=== PATIENT | male | born 1980 ===

== ENCOUNTER 2018-10-10 14:52 | Inpatient (IN) ==
[2018-10-10] MEDS ORDERED: cefOXitin 2,000 MG in SYRINGE 1 EACH IV ONE (15:38)
[2018-10-10] MEDS ORDERED: PIPERACILLIN/TAZOBACTAM 3,375 MG in SODIUM CHLORIDE 0.9% 100 ML IV SCH (16:00)
[2018-10-10] MEDS ORDERED: BUPIVACAINE 0.5% 50 ML VIAL ONE (16:01)
[2018-10-10] MEDS ORDERED: ACETAMINOPHEN 325 MG TABLET PO PRN (16:01)
[2018-10-10] MEDS ORDERED: ONDANSETRON 4 MG/2 ML VIAL IV PRN (16:01)
[2018-10-10] MEDS ORDERED: MORPHINE 4 MG/1 ML VIAL IV PRN (16:01)
[2018-10-10] MEDS ORDERED: TISSUE ADHESIVE 1 EACH APPLICATOR TOP ONE (16:01)
[2018-10-10] MEDS ORDERED: LIDOCAINE 1%/EPI INJ 20 ML VIAL ONE (16:01)
[2018-10-10] MEDS ORDERED: PROPOFOL 200 MG/20 ML VIAL IV ONE (20:06)
[2018-10-10] MEDS ORDERED: SEVOFLURANE 1 UNIT/15 MINUTE INH ONE (20:06)
[2018-10-10] MEDS ORDERED: MIDAZOLAM 2 MG/2 ML VIAL ONE (20:06)
[2018-10-10] MEDS ORDERED: fentaNYL 100 MCG/2 ML VIAL ONE (20:06)
[2018-10-10] MEDS ORDERED: DEXAMETHASONE 10 MG/1 ML VIAL ONE (20:07)
[2018-10-10] MEDS ORDERED: SUCCINYLCHOLINE 200 MG/10 ML VIAL ONE (20:07)
[2018-10-10] MEDS ORDERED: ROCURONIUM 100 MG/10 ML VIAL IV ONE (20:07)
[2018-10-10] MEDS ORDERED: NEOSTIGMINE 10 MG/10 ML VIAL ONE (20:07)
[2018-10-10] MEDS ORDERED: ONDANSETRON 4 MG/2 ML VIAL ONE (20:07)
[2018-10-10] MEDS ORDERED: GLYCOPYRROLATE 0.4 MG/2 ML VIAL ONE (20:07)
[2018-10-10] MEDS ORDERED: ESMOLOL 100 MG/10 ML VIAL IV ONE (20:07)
[2018-10-10] MEDS: cefOXitin 2,000 MG in SYRINGE 1 EACH IV SCH (21:09)
[2018-10-10] MEDS: LACTATED RINGERS 1,000 ML IV SCH (22:00)
[2018-10-11] MEDS: LACTATED RINGERS 1,000 ML IV SCH ×4 (01:46→20:46)
[2018-10-11] MEDS: cefOXitin 2,000 MG in SYRINGE 1 EACH IV SCH ×4 (02:50→20:42)
[2018-10-11 05:37] LABS: Basophils % 0.2 % (0.0-0.8); Hematocrit 44.1 VOL% (42.0-52.0); Hemoglobin 14.8 GM/DL (14.0-18.0); Immature Granulocytes Absolute 0.26 #; Lymphocytes # 2.2 10*3/uL (1.4-4.0); Lymphocytes % 8.7 % (21.2-54.2); Mean Corpuscular HGB Conc 33.6 GM/DL (32-36); Mean Corpuscular Hemoglobin 30 PG (27-34); Mean Platelet Volume 11.2 FL (9.6-12.0); Monocytes % 7.7 % (1.7-12.7); Neutrophils # 20.9 10*3/uL (1.4-7.4); Neutrophils % 82.4 % (38.7-73.9); Platelet Count 178 T/CUMM (130-400); Red Blood Count 5.01 MC/CUMM (3.8-5.5); Red Cell Distribution Width 13.7 % (9.3-17.3); White Blood Count 25.4 T/CUMM (4-12)
[2018-10-11 06:06] LABS: Albumin 2.9 G/DL (3.4-5.0); Bilirubin,Total 1.1 MG/DL (0.2-1.0); Calcium 8.5 MG/DL (8.5-10.1); Osmolality,Calculated 272.1 MOS/KG (273-304); Potassium 3.7 MMOL/L (3.5-5.1); Total Protein 8.3 G/DL (6.4-8.3)
[2018-10-11 06:26] LABS: Lymphocytes 7 % (20-55); Platelet Estimate Adequate; Segmented Neutrophils 92 % (50-85); Total Cells Counted 100
[2018-10-11 06:27] LABS: Polychromasia Few
[2018-10-11] MEDS: PANTOPRAZOLE 40 MG TABLET PO SCH (09:20)
[2018-10-11] MEDS: TAMSULOSIN 0.4 MG CAPSULE PO SCH (10:00)
[2018-10-11] MEDS ORDERED: ENOXAPARIN 40 MG/0.4 ML SYRINGE SUBCUT SCH (21:00)
[2018-10-12] MEDS: cefOXitin 2,000 MG in SYRINGE 1 EACH IV SCH ×2 (02:58→08:30)
[2018-10-12] MEDS: LACTATED RINGERS 1,000 ML IV SCH ×2 (04:55→08:31)
[2018-10-12 05:26] LABS: Basophils % 0.2 % (0.0-0.8); Eosinophils % 0.2 % (0.00-10.9); Hemoglobin 13.3 GM/DL (14.0-18.0); Immature Granulocytes % 0.7 %; Immature Granulocytes Absolute 0.12 #; Lymphocytes # 2.8 10*3/uL (1.4-4.0); Lymphocytes % 15.5 % (21.2-54.2); Mean Corpuscular HGB Conc 32.4 GM/DL (32-36); Mean Corpuscular Hemoglobin 29 PG (27-34); Mean Corpuscular Volume 88.6 FL (87-102); Monocytes % 5.4 % (1.7-12.7); Neutrophils # 14.2 10*3/uL (1.4-7.4); Platelet Count 157 T/CUMM (130-400); Red Blood Count 4.63 MC/CUMM (3.8-5.5); Red Cell Distribution Width 13.5 % (9.3-17.3); White Blood Count 18.1 T/CUMM (4-12)
[2018-10-12 05:48] LABS: Calcium 7.8 MG/DL (8.5-10.1); Potassium 3.3 MMOL/L (3.5-5.1)
[2018-10-12 07:41] VITALS: BP 137/78
[2018-10-12] MEDS: POTASSIUM CHLORIDE 20 MEQ TABLET PO PRN ×2 (08:30→10:29)
[2018-10-12] MEDS: TAMSULOSIN 0.4 MG CAPSULE PO SCH (08:31)
[2018-10-12] MEDS: PANTOPRAZOLE 40 MG TABLET PO SCH (08:31)
== END 2018-10-12 14:10 | disposition home or self-care (01) | DRG 339 ==
LOC: EDBD → EDUNIT# → N.ED 14:52 → N.3E 15:23
PROVIDERS: ADMIT Surgery; ATTEND Surgery